=== PATIENT | female | born 1955 | race Caucasian/White ===

== ENCOUNTER 2019-07-29 13:25 | Emergency (ER) | payer OTHER, BC ==
--- NOTE | 2019-07-29 14:09 | EDPHYS ---
Physician Documentation [facility] Name: Betsy Waggoner Age: 63 yrs Sex: Female : 1955 Arrival Date: 07/29/2019 Time: 13:31 Bed 23 Private MD: ED Physician Sumanth Leal HPI: 07/29 14:05 This 63 yrs old Female presents to ER via Ambulatory with complaints of gs Medication withdrawals. 14:05 The patient presents to the emergency department with ran out of xanax. Onset: The gs symptoms/episode began/occurred 1 week(s) ago. Associated signs and symptoms: Pertinent positives; anxiety. Severity of symptoms: At their worst the symptoms were moderate in the emergency department the symptoms are unchanged. The patient has experienced similar episodes in the past, a few times. The patient has not recently seen a physician. Historical: - Allergies: 13:47 Aspirin; bp - Home Meds: 13:47 Effexor 75 MG Oral daily [Active]; [place] Carbonate Oral [Active]; Xanax Oral bp [Active]; levothyroxine oral [Active]; Adderall XR 20 mg Oral cp24 1 cap once daily [Active]; lisinopril 20 mg Oral tab 1 tab once daily [Active]; - PMHx: 13:47 Bipolar disorder; Hypothyroidism; Hypertension; bp - Immunization history:: Adult Immunizations. - Social history:: Smoking status: Patient/guardian denies using tobacco. - Ebola Screening: : No symptoms or risks identified at this time. ROS: 14:05 All other systems are negative. gs Exam: 14:05 Head/Face: Normocephalic, atraumatic. Eyes: Pupils equal round and reactive to light, gs extra-ocular motions intact. Lids and lashes normal. Conjunctiva and sclera are non-icteric and not injected. Cornea within normal limits. Periorbital areas with no swelling, redness, or edema. ENT: Nares patent. No nasal discharge, no septal abnormalities noted. Tympanic membranes are normal and external auditory canals are clear. Oropharynx with no redness, swelling, or masses, exudates, or evidence of obstruction, uvula midline. Mucous membranes moist. Neck: Trachea midline, no thyromegaly or masses palpated, and no cervical lymphadenopathy. Supple, full range of motion without nuchal rigidity, or vertebral point tenderness. No Meningismus. Chest/axilla: Normal chest wall appearance and motion. Nontender with no deformity. No lesions are appreciated. Cardiovascular: Regular rate and rhythm with a normal S1 and S2. No gallops, murmurs, or rubs. Normal PMI, no JVD. No pulse deficits. Respiratory: Lungs have equal breath sounds bilaterally, clear to auscultation and percussion. No rales, rhonchi or wheezes noted. No increased work of breathing, no retractions or nasal flaring. Abdomen/GI: Soft, non-tender, with normal bowel sounds. No distension or tympany. No guarding or rebound. No evidence of tenderness throughout. Back: No spinal tenderness. No costovertebral tenderness. Full range of motion. Skin: Warm, dry with normal turgor. Normal color with no rashes, no lesions, and no evidence of cellulitis. MS/ Extremity: Pulses equal, no cyanosis. Neurovascular intact. Full, normal range of motion. 14:05 Constitutional: The patient appears alert, awake. 14:05 Neuro: Orientation: is normal, Mentation: is normal, Memory: is normal, Cranial nerves: CN II- XII are normal as tested, Cerebellar function: is grossly normal, Motor: moves all fours, Sensation: no obvious gross deficits, Abnormal movements: intention tremor, located in the left hand. Vital Signs: 13:47 BP 142 / 109; Pulse 86; Resp 20; Temp 98.6; Pulse Ox 99% ; Weight 64.41 kg; Height 5 bp ft. 4 in. (162.56 cm); 13:47 Body Mass Index 24.37 (64.41 kg, 162.56 cm) bp MDM: 14:05 Patient medically screened. gs 14:05 Differential diagnosis: drug withdrawal. depression. Data reviewed: vital signs, nurses gs notes. Counseling: I had a detailed discussion with the patient and/or guardian regarding: the historical points, exam findings, and any diagnostic results supporting the discharge/admit diagnosis, the need for outpatient follow up. Response to treatment: There is no appreciated change of the patient's symptoms at this time. Physician consultation: dr cecily page her psychiatrist says will refill until her appt 08/09. Administered Medications: No medications were administered Disposition: 07/29/19 14:08 Discharged to Home. Impression: Underdosing of benzodiazepines. - Condition is Stable. - Discharge Instructions: Benzodiazepine Withdrawal. - Medication Reconciliation Form, Thank You Letter, Antibiotic Education, Prescription Opioid Use form. - Follow up: Private Physician; When: 2 - 3 days; Reason: Re-evaluation by your physician. Signatures: Sumanth Leal MD MD gs Peltier, Brian, RN RN bp Daniel Camahco RN RN rv Corrections: (The following items were deleted from the chart) 14:17 14:08 07/29/2019 14:08 Discharged to Home. Impression: Underdosing of benzodiazepines. rv Condition is Stable. Forms are Medication Reconciliation Form, Thank You Letter, Antibiotic Education, Prescription Opioid Use. Follow up: Private Physician; When: 2 - 3 days; Reason: Re-evaluation by your physician. gs
--- NOTE | 2019-07-29 14:09 | ER ---
Nurse's Notes [facility] Name: Betsy Waggoner Age: 63 yrs Sex: Female : 1955 Arrival Date: 07/29/2019 Time: 13:31 Bed 23 Private MD: Diagnosis: Underdosing of benzodiazepines Presentation: 07/29 13:45 Presenting complaint: Patient states: "I'VE BEEN ON XANAX FOR 15 YEARS AND I RAN OUT bp LAST WEEK". Transition of care: patient was not received from another setting of care. Onset of symptoms is unknown. Risk Assessment: Do you want to hurt yourself or someone else? Patient reports no desire to harm self or others. Initial Sepsis Screen: Does the patient meet any 2 criteria? No. Patient's initial sepsis screen is negative. Does the patient have a suspected source of infection? No. Patient's initial sepsis screen is negative. Care prior to arrival: None. 13:45 Method Of Arrival: Ambulatory bp 13:45 Acuity: SVEN 4 bp Historical: - Allergies: 13:47 Aspirin; bp - Home Meds: 13:47 Effexor 75 MG Oral daily [Active]; [place] Carbonate Oral [Active]; Xanax Oral bp [Active]; levothyroxine oral [Active]; Adderall XR 20 mg Oral cp24 1 cap once daily [Active]; lisinopril 20 mg Oral tab 1 tab once daily [Active]; - PMHx: 13:47 Bipolar disorder; Hypothyroidism; Hypertension; bp - Immunization history:: Adult Immunizations. - Social history:: Smoking status: Patient/guardian denies using tobacco. - Ebola Screening: : No symptoms or risks identified at this time. Screenin:14 Abuse screen: Denies threats or abuse. Denies injuries from another. Nutritional rv screening: No deficits noted. Tuberculosis screening: No symptoms or risk factors identified. Fall Risk None identified. Assessment: 14:13 General: Appears in no apparent distress. comfortable, Behavior is calm, cooperative. rv Pain: Denies pain. Neuro: Level of Consciousness is awake, alert, obeys commands, Oriented to person, place, time, situation. Cardiovascular: Patient's skin is warm and dry. Respiratory: Airway is patent. GI: No signs and/or symptoms were reported involving the gastrointestinal system. : No signs and/or symptoms were reported regarding the genitourinary system. EENT: No signs and/or symptoms were reported regarding the EENT system. Derm: Skin is intact. Musculoskeletal: No signs and/or symptoms reported regarding the musculoskeletal system. Vital Signs: 13:47 BP 142 / 109; Pulse 86; Resp 20; Temp 98.6; Pulse Ox 99% ; Weight 64.41 kg; Height 5 bp ft. 4 in. (162.56 cm); 13:47 Body Mass Index 24.37 (64.41 kg, 162.56 cm) bp ED Course: 13:31 Patient arrived in ED. mr 13:45 Triage completed. bp 13:47 Arm band placed on. bp 13:50 Sumanth Leal MD is Attending Physician. 14:12 Daniel Camacho, RN is Primary Nurse. rv 14:14 Patient has correct armband on for positive identification. Bed in low position. Call rv light in reach. Pulse ox on. NIBP on. 14:15 No provider procedures requiring assistance completed. Patient did not have IV access rv during this emergency room visit. Administered Medications: No medications were administered Outcome: 14:08 Discharge ordered by . gs 14:15 Discharged to home ambulatory. rv 14:15 Condition: alert and awake, and amublatory upon discharge. no signs of distress. patient agreed with plan of care after Dr Leal explained at bedside. 14:15 Discharge instructions given to patient, Instructed on discharge instructions, follow up and referral plans. Demonstrated understanding of instructions, follow-up care. 14:17 Patient left the ED. rv Signatures: Holger Kely del rio Sumanth Leal MD MD Oseas Granado, ALAN RN Daniel Camacho, ALAN RN rv
[2019-07-29 14:55] VITALS: BP 142/109; TEMP 98.6; O2SAT 99
== END 2019-07-29 14:17 | disposition home or self-care (01) ==
LOC: ER 13:25
DX: F41.9 Anxiety disorder, unspecified (principal); T42.4X6A Underdosing of benzodiazepines, initial encounter; Z91.138 Patient's unintentional underdosing of medication regimen for other reason; I10 Essential (primary) hypertension; E03.9 Hypothyroidism, unspecified; F31.9 Bipolar disorder, unspecified; Z88.6 Allergy status to analgesic agent
CPT/HCPCS: 99283

== ENCOUNTER 2021-06-16 12:22 | Emergency (ER) | payer OTHER, BC ==
--- OUTSIDE RECORDS SUMMARY | 2021-06-16 12:26 | XMS REPORT | Continuity of Care Document ---
:1955 Author Organization [facility] t Address [address] [place] [address] Care Team Providers Name Role Phone Derrick BROWN Attending Clinician 2, Lab Attending Clinician Unavailable Problems This patient has no known problems. Allergies, Adverse Reactions, Alerts This patient has no known allergies or adverse reactions. Medications This patient has no known medications. Procedures This patient has no known procedures. Encounters Start End Encounter Admission Attending Care Care Encounter Source Date/Time Date/Time Type Type Clinicians Facility Department ID 2021-06-14 2021-06-14 Telephone [facility] [id number] 00:00:00 00:00:00 Randi Marsh [id number] [place] [id number] Professio [phone] nal 059 Building 2021-05-25 2021-05-25 Construction Crew Member 2, [facility] [id number] 13:40:41 13:55:41 Visit Sharon [id number] [place] [id number] Profess[facility] [phone] nal 353 Building Results This patient has no known results.
[2021-06-16 17:51] LABS: Albumin 4.4 g/dL (3.4-5.0); Bilirubin Direct 0.1 mg/dL (0-0.2); Bilirubin Total 0.5 mg/dL (0.2-1.0); Potassium 4.3 mmol/L (3.5-5.1); Protein, Total 7.7 g/dL (6.4-8.2)
[2021-06-16 18:26] LABS: Absolute Lymphocytes (CBC) 0.9 K/uL (0.7-4.9); Basophils % 0.6 % (0-1.3); Hematocrit 35.4 % (36.0-45.0); Lymphocytes % 15.5 % (15.3-44.8); MPV 8.9 fL (7.6-11.3); RBC Red Blood Cell Count 3.76 M/uL (3.86-4.86)
--- NOTE | 2021-06-16 20:30 | RAD REPORT ---
EXAM DESCRIPTION: CT - Abdomen Pelvis W Contrast - 06/16/2021 8:18 pm CLINICAL HISTORY: Abdominal pain COMPARISON: 2011 TECHNIQUE: Computed axial tomography of the abdomen pelvis was obtained. 100 cc Isovue-300 was admin istered intravenously. Oral contrast was not requested which limits evaluation of bowel. All CT scans are performed using dose optimization technique as appropriate and may include automated exposure control or mA/KV adjustment according to patient size. FINDINGS: The liver, spleen, pancreas, and adrenals appear unremarkable. Parapelvic renal cysts are present There is no evidence of diverticulitis. Hysterectomy. IMPRESSION: No acute abnormality is displayed.
--- NOTE | 2021-06-16 20:34 | EDPHYS ---
Physician Documentation [facility] Name: Betsy Waggoner Age: 65 yrs Sex: Female : 1955 Arrival Date: 06/16/2021 Time: 12:24 Bed 10 Private MD: ED Physician Iam Aguillon HPI: 06/16 16:09 This 65 yrs old Female presents to ER via Wheelchair with complaints of jr8 Vomiting, Rash. 16:09 The patient presents to the emergency department with nausea, vomiting, diarrhea, jr8 abdominal pain. Onset: The symptoms/episode began/occurred acutely. Possible causes: unknown. The symptoms are aggravated by food , The symptoms are alleviated by nothing. Associated signs and symptoms: The patient has no apparent associated signs or symptoms. Severity of symptoms: At their worst the symptoms were moderate in the emergency department the symptoms are unchanged. The patient has not experienced similar symptoms in the past. The patient has not recently seen a physician. Historical: - Allergies: 14: No Known Allergies; jl7 - PMHx: 14: Bipolar disorder; Hypertension; Hypothyroidism; jl7 - Immunization history:: Adult Immunizations up to date, Client reports receiving the 2nd dose of the Covid vaccine, Pfizer in February 2021. - Social history:: Smoking status: Patient denies any tobacco usage or history of. ROS: 16:46 Eyes: Negative for injury, pain, redness, and discharge, ENT: Negative for injury, jr8 pain, and discharge, Neck: Negative for injury, pain, and swelling, Cardiovascular: Negative for chest pain, palpitations, and edema, Respiratory: Negative for shortness of breath, cough, wheezing, and pleuritic chest pain, Back: Negative for injury and pain, MS/Extremity: Negative for injury and deformity, Skin: Negative for injury, rash, and discoloration, Neuro: Negative for headache, weakness, numbness, tingling, and seizure. 16:46 Abdomen/GI: Positive for abdominal pain, nausea, vomiting, and diarrhea, Negative for abdominal distension, anorexia, dysphagia, hematemesis, black/tarry stool, rectal pain, rectal bleeding, bowel incontinence, flatulence. 16:46 Skin: Positive for lesions, of the right leg. Exam: 16:46 Constitutional: This is a well developed, well nourished patient who is awake, alert, jr8 and in no acute distress. Cardiovascular: Regular rate and rhythm with a normal S1 and S2. No gallops, murmurs, or rubs. Normal PMI, no JVD. No pulse deficits. Respiratory: Lungs have equal breath sounds bilaterally, clear to auscultation and percussion. No rales, rhonchi or wheezes noted. No increased work of breathing, no retractions or nasal flaring. Back: No spinal tenderness. No costovertebral tenderness. Full range of motion. MS/ Extremity: Pulses equal, no cyanosis. Neurovascular intact. Full, normal range of motion. Neuro: Awake and alert, GCS 15, oriented to person, place, time, and situation. Cranial nerves II-XII grossly intact. Motor strength 5/5 in all extremities. Sensory grossly intact. 16:46 Abdomen/GI: Inspection: abdomen appears normal, Bowel sounds: active, all quadrants, Palpation: soft, in all quadrants, mild abdominal tenderness, in the umbilical area, mass, is not appreciated, rebound tenderness, is not appreciated, voluntary guarding, is not appreciated, involuntary guarding, is not appreciated, no appreciated organomegaly, Indicators: McBurney's point is not tender, Dc's sign is negative, Rovsing's sign is negative, Liver: tenderness, is not appreciated. 16:46 Skin: Patient has 2 cm round well demarcated erythematous and purple looking lesion. Tender to touch. No defined abscess collection.. Vital Signs: 13:58 BP 151 / 92; Pulse 89; Resp 17; Temp 97.8; Pulse Ox 100% ; Weight 62.6 kg; Height 5 ft. jl7 4 in. (162.56 cm); Pain 5/10; 21:14 BP 172 / 88; Pulse 71; Resp 16 S; Pulse Ox 96% on R/A; bb 13:58 Body Mass Index 23.69 (62.60 kg, 162.56 cm) jl7 MDM: 15:09 Patient medically screened. jr8 20:33 Data reviewed: vital signs, nurses notes, lab test result(s), radiologic studies, CT jr8 scan. Data interpreted: Pulse oximetry: on room air is 100 %. Interpretation: normal. Counseling: I had a detailed discussion with the patient and/or guardian regarding: the historical points, exam findings, and any diagnostic results supporting the discharge/admit diagnosis, lab results, radiology results, the need for outpatient follow up, a blast furnace keeper helper, a family practitioner, a research clerk, to return to the emergency department if symptoms worsen or persist or if there are any questions or concerns that arise at home. Special discussion: Based on the patient's Hx, exam, and Dx evaluation, there is no indication for emergent surgery or inpatient Tx. It is understood by the patient/guardian that if the Sx's persist or worsen they need to return immediately for re-evaluation. 06/16 15:36 Order name: Basic Metabolic Panel; Complete Time: 18:30 [facility] 06/16 15:36 Order name: CBC with Diff; Complete Time: 18:51 [facility] 06/16 15:36 Order name: Hepatic Function; Complete Time: 18:30 [facility] 06/16 15:36 Order name: Lipase; Complete Time: 18:30 [facility] 06/16 15:36 Order name: Labs collected and sent; Complete Time: 18:04 [facility] 06/16 19:25 Order name: CT Abd/Pelvis - IV Contrast Only; Complete Time: 20:33 kg Administered Medications: No medications were administered Disposition: 06/17 07:22 Co-signature as Attending Physician, Iam Aguillon MD I agree with the assessment and kdr plan of care. Disposition Summary: 06/16/21 20:34 Discharge Ordered Location: Home [facility] Problem: new jr8 Symptoms: have improved jr8 Condition: Stable jr8 Diagnosis - Vomiting jr8 Followup: jr8 - With: Jesus Barajas MD - When: 5 - 6 days - Reason: Recheck today's complaints, Continuance of care, Re-evaluation by your physician Discharge Instructions: - Discharge Summary Sheet jr8 - Vomiting, Adult jr8 Forms: - Medication Reconciliation Form jr8 - Thank You Letter jr8 - Antibiotic Education jr8 - Prescription Opioid Use jr8 Prescriptions: - Zofran 4 mg Oral Tablet - take 1 tablet by ORAL route every 12 hours As needed; 20 tablet; Refills: 0, jr8 Product Selection Permitted - dicyclomine 20 mg Oral Tablet - take 1 tablet by ORAL route 3 times per day As needed; 20 tablet; Refills: 0, jr8 Product Selection Permitted - promethazine 25 mg Oral Tablet - take 1 tablet by ORAL route every 6 hours As needed; 20 tablet; Refills: 0, jr8 Product Selection Permitted - promethazine 25 mg Rectal suppository - insert 1 suppository by RECTAL route every 6 hours; 12 suppository; Refills: 0, jr8 Product Selection Permitted Signatures: Dispatcher [employer] EDMS Iam Aguillon MD MD kdr Roszak, Josh, PA PA jr8 Trinh Rhodes RN RN jl7 Corrections: (The following items were deleted from the chart) 06/16 14:02 14:01 Allergies: Aspirin; jimena jl7 19:27 18:41 Abdomen Pelvis Wo Con+CT.RAD.BRZ ordered. EDMS EDMS 19:28 18:31 Abdomen Pelvis W Con+CT.RAD.BRZ ordered. EDMS EDMS
--- NOTE | 2021-06-16 20:34 | ER ---
Nurse's Notes [facility] Name: Betsy Waggoner Age: 65 yrs Sex: Female : 1955 Arrival Date: 06/16/2021 Time: 12:24 Bed 10 Private MD: Diagnosis: Vomiting Presentation: 06/16 13:58 Chief complaint: Patient states: Vomiting since last night, rash on abdomen x 2 months, jl7 abscess to posterior right thigh since April and Certified Medical Asst wants calcium and kidney function checked. Coronavirus screen: Client denies travel out of the [place] in the last 14 days. vomiting. Client presents with at least one sign or symptom that may indicate coronavirus-19. Standard/surgical mask placed on the client. Provider contacted for isolation considerations. Ebola Screen: No symptoms or risks identified at this time. Initial Sepsis Screen: Does the patient meet any 2 criteria? No. Patient's initial sepsis screen is negative. Does the patient have a suspected source of infection? No. Patient's initial sepsis screen is negative. Risk Assessment: Do you want to hurt yourself or someone else? Patient reports no desire to harm self or others. Onset of symptoms is unknown. 13:58 Method Of Arrival: Wheelchair jl7 13:58 Acuity: SVEN 3 jl7 Historical: - Allergies: 14:01 No Known Allergies; jl7 - PMHx: 14:01 Bipolar disorder; Hypertension; Hypothyroidism; jl7 - Immunization history:: Adult Immunizations up to date, Client reports receiving the 2nd dose of the Covid vaccine, Pfizer in February 2021. - Social history:: Smoking status: Patient denies any tobacco usage or history of. Assessment: 21:13 Reassessment: pt seen by this nurse at discharge, pt is A\T\O x 4, resp unlabored, bb verbalized understanding of and agrees to plan of care discharge instructions given pt ambulated with steady gait to exit accompanied by spouse. Vital Signs: 13:58 BP 151 / 92; Pulse 89; Resp 17; Temp 97.8; Pulse Ox 100% ; Weight 62.6 kg; Height 5 ft. jl7 4 in. (162.56 cm); Pain 5/10; 21:14 BP 172 / 88; Pulse 71; Resp 16 S; Pulse Ox 96% on R/A; bb 13:58 Body Mass Index 23.69 (62.60 kg, 162.56 cm) jl7 ED Course: 12:24 Patient arrived in ED. ds1 14:01 Triage completed. jl7 14:01 Arm band placed on right wrist. jl7 15:09 Rito Herman PA is PHCP. jr8 15:09 Iam Aguillon MD is Attending Physician. jr8 16:34 Vale Marshall, RN is Primary Nurse. kg 19:22 Inserted saline lock: 18 gauge in right forearm, using aseptic technique. MIDLINE 18G ag2 10CM IN RIGHT UPPER ARM Accessed. 20:18 CT Abd/Pelvis - IV Contrast Only In Process Unspecified. EDMS 20:34 Jesus Barajas MD is Referral Physician. jr8 21:15 No provider procedures requiring assistance completed. IV discontinued, intact, bb bleeding controlled, No redness/swelling at site. Pressure dressing applied. Administered Medications: No medications were administered Outcome: 20:34 Discharge ordered by MD. jr8 21:15 Discharged to home ambulatory, with family. bb 21:15 Condition: stable 21:15 Discharge instructions given to patient, Instructed on discharge instructions, follow up and referral plans. medication usage, Demonstrated understanding of instructions, follow-up care, medications, Prescriptions given X 4. 21:15 Patient left the ED. bb Signatures: Dispatcher [employer] [facility] Irena Shrestha ds1 Jennifer Bocanegra, RN RN bb Rito Herman PA PA jr8 Trinh Rhodes RN RN jl7 Marleny Canseco 2 Vale Marshall, ALAN RN kg Corrections: (The following items were deleted from the chart) 14:02 14:01 Allergies: Aspirin; jl7 jl7
[2021-06-16 21:22] VITALS: TEMP 97.8
[2021-06-16 21:24] VITALS: BP 172/88; O2SAT 96
== END 2021-06-16 21:15 | disposition home or self-care (01) ==
LOC: ER 12:22
DX: R11.10 Vomiting, unspecified (principal); I10 Essential (primary) hypertension
CPT/HCPCS: 85025; 80048; 36415; 80076; 83690; 74177; 99284; Q9967

== ENCOUNTER 2022-08-03 06:54 | Day surgery (SDC) | payer OTHER, BC ==
[2022-08-03] MEDS ORDERED: Ringers Lactate 1,000 ML IV ONE (07:15)
[2022-08-03] MEDS ORDERED: propofoL 200 MG/20 ML VIAL IV ONE ×2 (09:35→09:36)
[2022-08-03] MEDS ORDERED: LIDOCAINE 1% MPF 5 ML VIAL ONE (09:36)
--- NOTE | 2022-08-03 10:11 | ENDO RPT ---
[address], [address] EGD WITH DILATION PROCEDURE REPORT EXAM DATE: 08/03/2022 PATIENT NAME: Betsy Waggoner MR#: [id number] BIRTHDATE: 1955 ATTENDING: Rocky Grace Dr STATUS: outpatient RECEPTION SPECIALIST: Violet Hassan RN and Laureen Montesinos INDICATIONS: The patient is a 66 yr old Female here for an EGD with dilation due to dyspepsia, nausea and vomiting, GERD, heartburn, and dysphagia PROCEDURE PERFORMED: EGD with biopsy and EGD with dilatation over guidewire MEDICATIONS: Per Anesthesia. TOPICAL ANESTHETIC: none CONSENT: The patient understands the risks and benefits of the procedure and understands that these risks include, but are not limited to: sedation, allergic reaction, infection, perforation and/or bleeding. Alternative means of evaluation and treatment include, among others: physical exam, x-rays, and/or surgical intervention. The patient elects to proceed with this endoscopic procedure. DESCRIPTION OF PROCEDURE: During intra-op preparation period all mechanical medical equipment was checked for proper function. Hand hygiene and appropriate measures for infection prevention was taken. After the risks, benefits and alternatives of the procedure were thoroughly explained, Informed consent was verified, confirmed and timeout was successfully executed by the treatment team. The patient was anesthetized with topical anesthesia and the EG-2990i ([id number]), EC-3890Li ([id number]), and EG-2990i ([id number]) endoscope was introduced through the mouth and advanced to the third portion of the duodenum. The instrument was slowly withdrawn as the mucosa was fully examined. LA class B esophagitis was found in the lower esophagus. A Schatzki's ring was found in the lower esophagus. 12/13/15 mm balloon dilatations were performed. A moderate sized hiatal hernia was found Mild gastritis was found in the antrum. Multiple biopsies were obtained and sent to pathology. Mild duodenitis was found in the bulb of the duodenum. Dilation was performed at lower esophagus. DILATOR: SIZE(S): RESISTANCE: HEME: APPEARANCE: Dilator: Balloon Size(s): 12/13/15 mm Resistance: minimal Heme: yes Appearance: adequate COMMENT: Retroflexed views revealed a moderate sized hiatal hernia. ADVERSE EVENTS: There were no complications. IMPRESSIONS: 1. LA cClass B esophagitis in the lower esophagus 2. Schatzki's ring in the lower esophagus, s/p 12//15 mm esophageal balloon dilatations 3. Moderate sized hiatal hernia 4. Mild gastritis in the antrum, s/p biopsies 5. Mild duodenitis in the bulb of the duodenum RECOMMENDATIONS: 1. await biopsy results 2. acid suppression therapy REPEAT EXAM: Rocky Grace Dr eSigned: Rocky Grace Dr 08/03/2022 10:11 AM cc: CPT CODES: ICD9 CODES: PATIENT NAME: Betsy Waggoner MR#: [id number]
--- NOTE | 2022-08-03 10:33 | ENDO RPT ---
[address], [address] COLONOSCOPY PROCEDURE REPORT EXAM DATE: 08/03/2022 PATIENT NAME: Betsy Waggoner MR #: [id number] BIRTHDATE: 1955 ATTENDING: [address] STATUS: outpatient REHAB DEPARTMENT MANAGER: Violet Hassan RN and Laureen Luisnilda Montesinos INDICATIONS: The patient is a 66 yr old Female here for a colonoscopy due to hematochezia, change in bowel habits, constipation, and personal history of colon polyps PROCEDURE PERFORMED: Colonoscopy MEDICATIONS: Per Anesthesia. ESTIMATED BLOOD LOSS: None CONSENT: The patient understands the risks and benefits of the procedure and understands that these risks include, but are not limited to: sedation, allergic reaction, infection, perforation and/or bleeding. Alternative means of evaluation and treatment include, among others: physical exam, x-rays, and/or surgical intervention. The patient elects to proceed with this endoscopic procedure. DESCRIPTION OF PROCEDURE: During intra-op preparation period all mechanical medical equipment was checked for proper function. Hand hygiene and appropriate measures for infection prevention was taken. Procedure, possible complications, alternatives including, but not limited to possibility of bleeding, perforation, tear, infection, sepsis, need for surgery, need for blood transfusion, were explained to the patient. After the risks, benefits and alternatives of the procedure were thoroughly explained, Informed consent was verified, confirmed and timeout was successfully executed by the treatment team. The patient was placed in the left lateral position. A digital rectal exam was performed and revealed no abnormalities of the rectum. After appropriate level of anesthesia, the scope was passed. The EG-[id number] ([id number]) and [id number] ([id number]) endoscope was introduced through the anus and advanced to the cecum (base not seen; no excessive pressure due to TIA last month). The quality of the prep was poor. The instrument was then slowly withdrawn as the colon was fully examined. Scope withdrawal time was 7 minutes. COLON FINDINGS: Moderate sized internal hemorrhoids were found. Retroflexed views revealed medium hemorrhoids. The scope was then completely withdrawn from the patient and the procedure terminated. ADVERSE EVENTS: There were no complications. IMPRESSIONS: 1. Moderate sized internal hemorrhoids 2. Intubation to cecum 3. Personal history of colon polyps RECOMMENDATIONS: fiber rich diet RECALL: Return in 3 year(s) for Colonoscopy. [address] eSigned: [address] Dr 08/03/2022 10:32 AM cc: CPT CODES: ICD9 CODES: PATIENT NAME: Betsy Waggoner MR#: [id number]
[2022-08-03 11:05] VITALS: BP 142/78; TEMP 99.5; O2SAT 98
== END 2022-08-03 11:15 | disposition home or self-care (01) ==
LOC: OR 06:54
PROVIDERS: ATTEND Internal Medicine Gastroenterology
PROC: 0D738ZZ Dilation of Lower Esophagus, Via Natural or Artificial Opening Endoscopic (ICD-10-PCS; 2022-08-03)
PROC: 0DJD8ZZ Inspection of Lower Intestinal Tract, Via Natural or Artificial Opening Endoscopic (ICD-10-PCS; principal; 2022-08-03 08:15)
PROC: 0DB68ZX Excision of Stomach, Via Natural or Artificial Opening Endoscopic, Diagnostic (ICD-10-PCS; 2022-08-03 08:15)
DX: K92.1 Melena (principal); K59.00 Constipation, unspecified; Z86.010 Personal history of colon polyps; I10 Essential (primary) hypertension; E03.9 Hypothyroidism, unspecified; F31.9 Bipolar disorder, unspecified; K29.50 Unspecified chronic gastritis without bleeding; K44.9 Diaphragmatic hernia without obstruction or gangrene; K29.80 Duodenitis without bleeding; K20.90 Esophagitis, unspecified without bleeding; R13.10 Dysphagia, unspecified; R10.13 Epigastric pain; R11.2 Nausea with vomiting, unspecified; K21.9 Gastro-esophageal reflux disease without esophagitis
CPT/HCPCS: 88312; 88305; 45378; 43239; 43249; J2704 ×2; J2001; J7120; C1726